=== PATIENT | male | born 1955 | race Caucasian/White ===

== ENCOUNTER 2018-12-24 08:17 | Emergency (ER) | payer BC ==
[~2018-12-24] VITALS: Ht 175.3 cm; Wt 77.2 kg
[2018-12-24 08:32] VITALS: Ht 175.3 cm; Wt 77.2 kg
[2018-12-24] MEDS ORDERED: SOD CHLORIDE 0.9% 500 ML IV STA (08:35)
[2018-12-24] MEDS ORDERED: KETOROLAC 15 MG INJ IV STA (08:35)
--- NOTE | 2018-12-24 08:47 | ERD ---
ER Documentation Chief Complaint Chief Complaint HPI 63-year-old man brought in by EMS from home for complaints of "weakness" and sle epiness x2 days, patient suspects he has a upper respiratory tract infection because he states he has had mild cough and nasal congestion as well. Patient denies fevers or chills, no abdominal pain, no dysuria, no chest pain or shortness of breath, no headache or blurry vision. Patient was transported here by EMS without further complications ROS All systems reviewed and are negative except as per history of present illness. Medications Home Meds Active Scripts Ibuprofen* (Motrin*) 600 Mg Tab, 600 MG PO Q8 PRN for PAIN AND/OR INFLAMMATION, #30 TAB Prov:MALISSA LEW MD 12/24/18 Allergies Allergies: Coded Allergies: No Known Allergy (Unverified , 12/24/18) PMhx/Soc Hypertension Physical Exam Vitals Vital Signs Date Temp Pulse Resp B/P (MAP) Pulse Ox O2 O2 Flow FiO2 Time Delivery Rate 12/24/18 77 18 150/92 98 Room Air 10:29 (111) 12/24/18 98.5 68 18 157/92 99 08:32 (113) Per nurse's records Physical Exam GENERAL: Well-developed, well-nourished, well-hydrated, in no apparent distress, looks nontoxic in appearance HEENT: Moist mucous membranes, pink conjunctiva, no cervical spine tenderness or step-off deformities, no goiter, no jaundice or icterus, extraocular movements intact without pain. No submandibular induration, and no pharyngeal erythema NEURO: Alert and oriented 3, cranial nerves II through XII intact bilaterally, pupils equal round reactive to light, no focal deficits or facial asymmetry, sensation intact distally Strength 5/5 in upper and lower extremities bilaterally CARDIAC: Regular rate and rhythm, no murmurs rubs or gallops LUNGS: Clear bilaterally no wheezing crackles or stridor ABDOMEN: Soft nontender, no guarding, no rigidity, no rebound, no psoas sign no obturator sign. Normoactive bowel sounds SKIN: Warm and dry to touch, no abrasions, contusions, or hematomas, no lacerations, no ecchymosis, no target lesions, and without ulcers EXTREMITIES: No clubbing cyanosis or edema, calves are bilaterally symmetrical, no Homans sign, no popliteal cord sign. Distal pulses equal and bilateral PSYCH: Normal affect without agitation or irritability Result Diagram: 12/24/18 0850 12/24/18 0850 Results 24 hrs Laboratory Tests Test 12/24/18 08:50 White Blood Count 9.8 10^3/ul Red Blood Count 5.40 10^6/ul Hemoglobin 16.1 g/dl Hematocrit 48.0 % Mean Corpuscular Volume 88.9 fl Mean Corpuscular Hemoglobin 29.8 pg Mean Corpuscular Hemoglobin Concent 33.5 g/dl Red Cell Distribution Width 12.9 % Platelet Count 355 10^3/UL Mean Platelet Volume 9.4 fl Immature Granulocytes % 0.300 % Neutrophils % 78.3 % Lymphocytes % 12.0 % Monocytes % 6.9 % Eosinophils % 1.7 % Basophils % 0.8 % Nucleated Red Blood Cells % 0.0 /100WBC Immature Granulocytes # 0.030 10^3/ul Neutrophils # 7.7 10^3/ul Lymphocytes # 1.2 10^3/ul Monocytes # 0.7 10^3/ul Eosinophils # 0.2 10^3/ul Basophils # 0.1 10^3/ul Nucleated Red Blood Cells # 0.0 10^3/ul Urine Color YELLOW Urine Clarity CLOUDY Urine pH 6.0 Urine Specific [place] 1.023 Urine Ketones NEGATIVE mg/dL Urine Nitrite NEGATIVE mg/dL Urine Bilirubin NEGATIVE mg/dL Urine Urobilinogen 1+ mg/dL Urine Leukocyte Esterase NEGATIVE Enrique/ul Urine Microscopic RBC 1 /HPF Urine Microscopic WBC 3 /HPF Urine Amorphous Crystals FEW /HPF Urine Mucus FEW /HPF Urine Hemoglobin NEGATIVE mg/dL Urine Glucose NEGATIVE mg/dL Urine Total Protein NEGATIVE mg/dl Sodium Level 144 mmol/L Potassium Level 3.9 mmol/L Chloride Level 101 mmol/L Carbon Dioxide Level 36 mmol/L Anion Gap 7 Blood Urea Nitrogen 13 mg/dl Creatinine 0.83 mg/dl Est Glomerular Filtrat Rate mL/min > 60 mL/min Glucose Level 133 mg/dl Calcium Level 9.2 mg/dl Total Bilirubin 0.4 mg/dl Direct Bilirubin 0.00 mg/dl Indirect Bilirubin 0.4 mg/dl Aspartate Amino Transf (AST/SGOT) 31 IU/L Alanine Aminotransferase (ALT/SGPT) 30 IU/L Alkaline Phosphatase 73 IU/L Troponin I < 0.012 ng/ml Total Protein 7.8 g/dl Albumin 4.2 g/dl Globulin 3.60 g/dl Albumin/Globulin Ratio 1.16 Lipase 138 U/L Current Medications Medications Dose Sig/Yany Start Time Status Last (Trade) Ordered Route PRN Stop Time Admin Dose Reason Admin Sodium 500 ml @ Q1H STAT 12/24/18 DC 12/24/18 Chloride 500 mls/hr IV 08:35 09:00 12/24/18 09:34 Ketorolac 15 mg ONCE STAT 12/24/18 DC 12/24/18 Tromethamine IV 08:35 09:00 (Toradol) 12/24/18 08:36 Ibuprofen 400 mg ONCE ONCE 12/24/18 DC 12/24/18 (Motrin) PO 10:00 10:09 12/24/18 10:01 Procedures/MDM IV line was established patient was placed on manager cardiac rhythm strip revealed a sinus rhythm at about 80 bpm with upright P and T waves. Patient was afebrile I administered 500 cc normal saline IV and Toradol 15 mg IV. One AP view of the chest performed, read by me reveals no acute infiltrates, normal mediastinum, sharp costophrenic and cardiac borders, no air under the diaphragm. Otherwise unremarkable chest x-ray. CBC and electrolytes were normal, liver function test normal, troponin negative, urinalysis negative for infection EKG performed, read by me reveals a normal sinus rhythm at 72 bpm, normal axis, right ventricular conduction delay QRS duration 114 ms, no concerning ST elevations or depressions noted Differential diagnoses considered, included but not limited to acute coronary syndrome, pulmonary embolism, aortic dissection, abdominal aortic aneurysm, sepsis, stroke, meningitis, encephalitis, pneumonia, appendicitis, cholecystitis, bowel obstruction, pyelonephritis, nephrolithiasis, cystitis, as well as metabolic, hematologic, and electrolyte abnormalities. As well as abscess, cellulitis, fractures, and dislocations. Patient feels much better at this time, and vital signs are normal, symptoms have improved. I did give strict instructions to return to the ED if symptoms continue or worsen, patient will otherwise follow-up with primary care physician. Patient understood instructions and agreed to plan. Disclaimer: Inadvertent spelling and grammatical errors are likely due to EHR/dictation software use and do not reflect on the overall quality of patient care. Also, please note that the electronic time recorded on this note does not necessarily reflect the actual time of the patient encounter. Departure Diagnosis: Primary Impression: Acute weakness Additional Impression: Acute URI Condition: Good MALISSA LEW MD Dec 24, 2018 08:47
[2018-12-24] MEDS ORDERED: IBUP-1542 PO (09:50)
[2018-12-24] MEDS ORDERED: IBUPROFEN 200 MG TAB PO ONE (10:00)
[2018-12-24 10:29] VITALS: BP 150/92; PULSE 77; RESP 18
[2018-12-25] MEDS ORDERED: BUTA1CAP38 PO (06:32)
[2018-12-25] MEDS ORDERED: AMLO5TAB4 PO (06:32)
== END 2018-12-24 10:32 | disposition home or self-care (01) ==
LOC: E/R 08:17
DX: R53.1 Weakness (principal); J06.9 Acute upper respiratory infection, unspecified; R40.2142 Coma scale, eyes open, spontaneous, at arrival to emergency department; R40.2362 Coma scale, best motor response, obeys commands, at arrival to emergency department; R40.2252 Coma scale, best verbal response, oriented, at arrival to emergency department
CPT/HCPCS: 36415; 71045; 80053; 81001; 83690; 84484; 85025; 93005; 96361; 96374; 99285; J1885; J7040

== ENCOUNTER 2018-12-25 04:31 | Emergency (ER) | payer BC ==
[~2018-12-25] VITALS: Ht 170.2 cm; Wt 84.5 kg
[~2018-12-25 04:31] MED LIST: IBUP-1542 PO
[2018-12-25 04:36] VITALS: Ht 170.2 cm; Wt 84.5 kg
[2018-12-25] MEDS ORDERED: ONDANSETRON 4 MG INJ IV STA (04:48)
[2018-12-25] MEDS ORDERED: PROCHLORPERAZINE 10 MG INJ IV STA (04:48)
[2018-12-25] MEDS ORDERED: SOD CHLORIDE 0.9% 1,000 ML IV STA (04:48)
[2018-12-25] MEDS ORDERED: LORAZEPAM 2 MG INJ IV ONE (05:30)
--- NOTE | 2018-12-25 05:45 | ERD ---
ER Documentation Chief Complaint Chief Complaint BRYAN X'S 2 DAYS, VOMITING X'S 1 HPI This is a 63-year-old gentleman who presents with a family member. The patient was seen here less than 24 hours ago for generalized weakness with thorough work-up including laboratory testing, EKG troponin chest x-ray that has been u nremarkable. Patient presents again because of elevated blood pressure and headache. One episode of nonbloody nonbilious emesis. The patient describes his headache is frontal, bandlike and gradual in onset. Patient has had a headache for approximately 1 week. Patient denies any rash or neck stiffness. His blood pressure has been elevated recently and he has been told that he has essential hypertension but has not started any blood pressure medications. He denies chest pain. ROS All systems reviewed and are negative except as per history of present illness. Medications Home Meds Active Scripts Yomaxejmwr-Qvbzsreknrhow-Stvdeodr* (Fioricet*) 50-300-40 Mg Capsule, 1 CAP PO TID PRN for HEADACHE, #20 CAP Prov:SILVIANO CHI MD 12/25/18 Amlodipine Besylate* (Norvasc*) 5 Mg Tablet, 5 MG PO DAILY for 30 Days, TAB Prov:SILVIANO CHI MD 12/25/18 Ibuprofen* (Motrin*) 600 Mg Tab, 600 MG PO Q8 PRN for PAIN AND/OR INFLAMMATION, #30 TAB Prov:MALISSA LEW MD 12/24/18 Allergies Allergies: Coded Allergies: No Known Allergy (Unverified , 12/24/18) PMhx/Soc History of Surgery: No Anesthesia Reaction: No Hx Neurological Disorder: No Hx Respiratory Disorders: No Hx Cardiac Disorders: Yes (HTN) Hx Psychiatric Problems: No Hx Miscellaneous Medical Probl: Yes (high cholesterol) Hx Alcohol Use: Yes Hx Substance Use: No Hx Tobacco Use: No Smoking Status: Never smoker FmHx Family History: No diabetes Physical Exam Vitals Vital Signs Date Temp Pulse Resp B/P (MAP) Pulse Ox O2 O2 Flow FiO2 Time Delivery Rate 12/25/18 68 21 143/69 97 Room Air 06:00 (93) 12/25/18 97.8 69 18 209/91 95 04:36 (130) Physical Exam General: Well developed, well nourished, no acute distress Head: Normocephalic, atraumatic. Eyes: Pupils equally reactive, EOM intact ENT: Moist mucous membranes Neck: Supple, no lymphadenopathy Respiratory: Lungs clear bilaterally, no distress Cardiovascular: RRR, no murmurs, rubs, or gallops Abdominal: Soft, non-tender, non-distended, no peritoneal signs : Deferred MSK: No edema, no unilateral swelling, 5/5 strength Neurologic: Alert and oriented, moving all extremities, normal speech, no focal weakness, no cerebellar signs, no meningismus Skin: No rash Psych: Normal mood Results 24 hrs Current Medications Medications Dose Sig/Yany Start Time Status Last (Trade) Ordered Route PRN Stop Time Admin Dose Reason Admin Sodium 1,000 ml @ Q1H STAT 12/25/18 DC 12/25/18 Chloride 1,000 mls/hr IV 04:48 04:54 12/25/18 05:47 10 mg ONCE STAT 12/25/18 DC 12/25/18 Prochlorperaz IV 04:48 04:54 ine 12/25/18 04:50 (Compazine Inj) Ondansetron 4 mg ONCE STAT 12/25/18 DC 12/25/18 HCl (Zofran IV 04:48 04:54 Inj) 12/25/18 04:50 Lorazepam 0.5 mg ONCE ONCE 12/25/18 DC 12/25/18 (Ativan) IV 05:30 05:23 12/25/18 05:31 Procedures/MDM EKG, MONITORS, & DIAGNOSTIC IMAGING: CT brain: Pending LAB INTERPRETATION: I reviewed the laboratory testing from yesterday showing no acute process MEDICAL DECISION MAKING: Patient presents with elevated blood pressure and a headache. Consistent with possible hypertensive urgency versus nonspecific headache. The patient's headache is unlikely related to serious etiology. The patient does not exhibit any clinical signs or symptoms, and has no risk factors to suggest headache etiology such as subarachnoid hemorrhage, acute vertebral or carotid dissection, intracranial mass, epidural, subdural hematoma, dural venous sinus thrombosis, giant cell arteritis, or pseudotumor cerebri. The patient was seen here less than 24 hours ago with thorough work-up including laboratory testing, EKG, troponin, chest x-ray all unremarkable. I do not have much to add to the patient's work-up. However given the patient's headache a CT of the brain would be appropriate. Low concern for intracranial hemorrhage. Patient will benefit from fluids, headache medication, anxiolysis. Patient may benefit from initiation of Norvasc for essential hypertension and close primary care follow-up. ER COURSE: * IV fluids, Compazine, Benadryl, Ativan provided. * Blood pressure improving * The patient CT is pending at the time of signout. Patient endorsed oncoming provider. If negative the patient can be safely discharged home. CONSULTATION: None DISPOSITION PLAN: The patient does not have an identifiable emergent medical condition that warrants inpatient hospitalization at this time. The patient is deemed safe for discharge with outpatient follow-up. We discussed follow up with the patient's primary care doctor within 24 to 48 hours as needed. We also discussed return to the emergency room for worsening symptoms or worsening condition. Outpatient referral: None required Discharge Medications: Norvasc, Fioricet Departure Diagnosis: Primary Impression: Headache Headache type: unspecified Headache chronicity pattern: acute headache Intractability: not intractable Qualified Codes: R51 - Headache Additional Impression: Hypertensive urgency Condition: Stable SILVIANO CHI MD Dec 25, 2018 05:45
[2018-12-25] MEDS ORDERED: BUTA1CAP38 PO (06:32)
[2018-12-25] MEDS ORDERED: AMLO5TAB4 PO (06:32)
[2018-12-25 07:53] VITALS: BP 148/89; PULSE 76; RESP 20
== END 2018-12-25 09:50 | disposition home or self-care (01) ==
LOC: E/R 04:31
DX: I16.0 Hypertensive urgency (principal); I10 Essential (primary) hypertension; R40.2142 Coma scale, eyes open, spontaneous, at arrival to emergency department; R40.2362 Coma scale, best motor response, obeys commands, at arrival to emergency department; R40.2252 Coma scale, best verbal response, oriented, at arrival to emergency department
CPT/HCPCS: 70450; 93005; 96374; 96375; 99285; J0780; J2060; J2405; J7030